=== PATIENT | female | born 1980 | race Caucasian/White ===

== ENCOUNTER 2019-11-04 21:40 | Inpatient (IN) | payer OTHER ==
[2019-11-04] MEDS ORDERED: Morphine 4 MG/ML VIAL ONE ×2 (21:59→23:26)
[2019-11-04] MEDS ORDERED: Ondansetron PF 4 MG/2 ML Vial ONE (21:59)
[2019-11-04 22:07] LABS: #Basophils 0.1 thou/uL (0.0-0.2); #Eosinphils 0.2 thou/uL (0.0-0.7); #Monocytes 1.4 thou/uL (0.11-0.59); #Neutrophils 7.7 thou/uL (1.40-6.50); %Basophils 0.5 % (0.0-1.0); %Eosinophils 1.2 % (0.0-10.0); %Lymphocytes 29.9 % (21.0-51.0); %Monocytes 10.2 % (0.0-10.0); %Neutrophils 58.2 % (42.0-75.0); Hemoglobin 10.1 g/dL (12.0-16.0); Mean Corpuscular HGB CONC 32.6 g/dL (32.0-36.0); Mean Corpuscular Hemoglobin 25.4 pg (27.0-31.0); Mean Corpuscular Volume 77.9 fL (78.0-98.0); Mean Platelet Volume 7.1 fL (7.4-10.4); Platelet Count 468 thou/uL (130-400); RBC Distribution Width 15.5 % (11.5-14.5); Red Blood Cell (RBC) Count 3.99 mill/uL (4.20-5.40); White Blood Cell (WBC) Count 13.3 thou/uL (4.8-10.8)
[2019-11-04 22:23] LABS: ALT (SGPT) 14 U/L (8-55); AST (SGOT) 22 U/L (5-34); Albumin 4.3 g/dL (3.5-5.0); Alkaline Phosphatase 75 U/L (40-110); Anion Gap 13 mmol/L (10-20); BUN (Urea Nitrogen) 14 mg/dL (7.0-18.7); Bilirubin, Total 0.3 mg/dL (0.2-1.2); Calc. Creatinine Clearance 0 mL/min (70-130); Carbon Dioxide 25 mmol/L (22-29); Chloride 103 mmol/L (98-107); Estimated GFR-MDRD 87; Globulin 3.1 g/dL (2.4-3.5); Glucose 121 mg/dL (70-105); Potassium 3.2 mmol/L (3.5-5.1); Protein, Total 7.4 g/dL (6.0-8.3); Sodium 138 mmol/L (136-145)
[2019-11-04 22:34] LABS: BHCG - Serum Negative (NEGATIVE); Pregs Control Background? CLEAR/WHITE (CLR/WHITE); Pregs Control Bar Appear? YES (CONTROL BAR)
--- NOTE | 2019-11-04 22:46 | RAD ---
Radiograph right leg tibia-fibula 2 views: DATE: 11/04/2019 Time: 10:06 PM HISTORY: 38-year-old female status post acute traumatic injury to right leg FINDINGS: Spiral fracture begins at junction between proximal and middle thirds of tibial diaphysis, with one h long-term shaft width posterior displacement of major distal fragment. Minimally displaced spiral fracture lucencies propagate distally through the distal diaphysis, reaching the distal metaphysis. N o high-grade angulation or high-grade transverse displacement between the major fracture fragments. Spiral fracture of distal fibular diaphysis, with approximately 75% or greater posterior displacement of major distal fragment. Nondisplaced linear spiral fracture lucencies extend to the distal fibular metaphysis. No high-grade displacement in transverse dimension. IMPRESSION: 1. Acute, traumatic, displaced, spiral and comminuted fracture of distal tibial shaft. 2. Acute, traumatic, displaced spiral fracture of distal fibular shaft.
--- NOTE | 2019-11-04 23:08 | RAD ---
RADIOGRAPH CHEST 1 VIEW: DATE: 11/04/2019 HISTORY: 38-year-old female status post fall. Preoperative clearance for right leg surgery. FINDINGS: The visualized lung domínguez are clear. The cardiomediastinal silhouette and hilar shadows are normal. The lateral costophrenic angles are sharp. The osseous structures appear normal. There is no pneumothorax. IMPRESSION: Negative.
[2019-11-04] MEDS ORDERED: Morphine 2 MG/ML SYRINGE SLOW IVP PRN (23:46)
[2019-11-04] MEDS ORDERED: Dextrose 5% in Water 1,000 ML IV PRN (23:46)
[2019-11-04] MEDS ORDERED: Morphine 4 MG/ML VIAL SLOW IVP PRN (23:46)
[2019-11-04] MEDS ORDERED: hydrALAZINE 20 MG/ML VIAL SLOW IVP PRN (23:46)
[2019-11-04] MEDS ORDERED: Ondansetron PF 4 MG/2 ML Vial IVP PRN (23:46)
[2019-11-04] MEDS ORDERED: Dextrose 50% Abboject 50 ML SYRINGE SLOW IVP PRN (23:46)
[2019-11-04] MEDS ORDERED: traMADol HCl 50 MG TAB PO PRN ×2 (23:49)
[2019-11-05] MEDS ORDERED: Potassium Phosphate 15 MMOL in Sodium Chloride 0.9% 250 ML 250 ML IVPB SCH (00:30)
[2019-11-05 01:02] VITALS: BMI 18.8
--- NOTE | 2019-11-05 01:05 | CON ---
DATE OF CONSULTATION: REQUESTING PHYSICIAN: Laith Luis DO CONSULTING PHYSICIAN: Kedar Horan MD HISTORY OF PRESENT ILLNESS: Ms. Menjivar is a 38-year-old female, who presented to the ED after an incident falling at home. The patient reports she was misstep on the backyard and fell backwards, did not hit her hand or any other part of her body. However, after a fall, the patient felt excruciating pain of the right lower leg and unable to bear weight. The patient reports no loss of consciousness or bruising of any other part of her body. Upon arrival in the ED, the patient is alert and awake. Vital signs are stable. Complains of pain of the right lower extremity. Neurovascularly intact. The right lower foot is intact. REVIEW OF SYSTEMS: Noncontributory except as per HPI. PAST MEDICAL HISTORY: No past medical history. PAST SURGICAL HISTORY: Endoscopy for endometriosis treatment for infertility treatment. SOCIAL HISTORY: Denies alcohol. Denies drug use. No smoking history. The patient lives at home with family. ALLERGIES: NO KNOWN DRUG ALLERGIES. CURRENT MEDICATIONS: None. PHYSICAL EXAMINATION: GENERAL: The patient lying in bed comfortable with no acute respiratory distress. The patient's skin is pink and moist. The patient is alert and awake. GCS 15. VITAL SIGNS: Heart rate 90, blood pressure 126/82, respiratory rate 18, O2 saturation 97% on room air, temperature 97.3. HEENT: Atraumatic. No bruising. Nontender to palpation. No bleeding. Pupil 3 mm, round, equal bilaterally, reactive to light. No discharge from the nostril bilaterally or ear bilaterally. NECK: Trachea midline. No tender to palpation. CHEST: Atraumatic. No bruising. No crepitus. No tender to palpation. LUNGS: Clear bilaterally. HEART: Regular rate and rhythm. ABDOMEN: Soft nondistended. No bruising. No tender to palpation. Apparently no peritonitis sign. PELVIS: Stable. EXTREMITIES: Right lower extremity, obvious deformity and bruising of the mid lower extremity, deformity of the midshaft of right tib-fib. Right foot is pink and warm. Capillary refill less than 2 seconds. Pulses positive from posterior tibia and dorsal. Bilateral upper extremity range of motion is normal. Neurovascularly intact x2. Left lower extremity, normal range of motion, neurovascularly intact. NEUROLOGIC: No focal neurology deficits. LABORATORY DATA: Initial workup show chest x-ray negative. X-ray of right tib- fib show acute traumatic displaced comminuted fracture of distal tibia shaft, acute traumatic, displaced fracture of distal fibular shaft. Laboratory show HCG serum negative. Sodium 138, potassium 3.2, creatinine 0.74, glucose is 121, AST 22, ALT 14. White count 13.3, hemoglobin 10.1, platelet count is 468. ASSESSMENT: 1. Status post mechanical fall. 2. Right close mid tib-fib fracture, neurovascularly intact. 3. Hypokalemia. 4. Acute on chronic anemia. PLAN: The patient will be admitted to [place] [id number] for pain control. The patient had a splint by ED doctor. Dr. Horan plan to take the patient to the OR for right tib-fib fracture fixation tomorrow. Initiate gastritis prophylaxis. The patient will be working with physical therapy, occupational therapy postop tomorrow. Anticipate discharge home in [address] Fajardo was notified before this dictation Job ID: [id number] [facility]
[2019-11-05] MEDS: Sodium Chloride 0.9% 1,000 ML IV SCH ×3 (01:11→16:53)
[2019-11-05] MEDS: Acetaminophen 500 MG TAB PO SCH ×2 (01:13→05:31)
[2019-11-05] MEDS: Ibuprofen 600 MG TAB PO SCH ×2 (01:14→07:40)
[2019-11-05] MEDS ORDERED: Sodium Chloride 0.9% (PF) 10 ML VIAL FS PRN (07:02)
[2019-11-05] MEDS ORDERED: Pantoprazole 40 MG VIAL IVP SCH (07:15)
[2019-11-05 07:18] LABS: Anion Gap 15 mmol/L (10-20); BUN (Urea Nitrogen) 9 mg/dL (7.0-18.7); Calc. Creatinine Clearance 84 mL/min (70-130); Calcium 8.6 mg/dL (7.8-10.44); Carbon Dioxide 21 mmol/L (22-29); Chloride 107 mmol/L (98-107); Estimated GFR-MDRD Greater than 90; Glucose 105 mg/dL (70-105); Potassium 3.5 mmol/L (3.5-5.1); Sodium 139 mmol/L (136-145)
[2019-11-05] MEDS ORDERED: CEFAZOLIN 2 GM in Premix Bag 1 BAG IVPB SCH ×2 (07:30→18:00)
[2019-11-05] MEDS: Ferrous Sulfate 325 MG TAB PO SCH ×2 (08:18→16:52)
[2019-11-05] MEDS: Ascorbic Acid 500 mg Chewable Tablet PO SCH ×2 (08:19→20:11)
[2019-11-05] MEDS: Polyethylene Glycol 3350 17 GM Packet PO SCH (08:19)
[2019-11-05] MEDS: Senokot S 8.6-50 MG TAB PO SCH ×2 (08:19→20:11)
--- NOTE | 2019-11-05 08:56 | CON ---
DATE OF CONSULTATION: CHIEF COMPLAINT: Right leg pain. HISTORY OF PRESENT ILLNESS: Ms. Menjivar is a 38-year-old female who fell from her porch yesterday evening. She was stepping when she missed a step. She fell and twisted her leg. She had severe pain, was unable to bear weight. X-rays in the emergency department demonstrated a distal tibia and fibular fracture. She has been admitted to the hospital. She declined having a splint placed. She did not want any significant pain medications earlier as she does have nausea usually with pain medications. She denies loss of consciousness. REVIEW OF SYSTEMS: Positive for right leg pain. Otherwise, negative 10-point review of systems. PAST MEDICAL HISTORY: She denies active medical problems. PAST SURGICAL HISTORY: Endometriosis treatment with endoscopy. SOCIAL HISTORY: The patient denies tobacco, alcohol, or drug use. ALLERGIES: NO KNOWN DRUG ALLERGIES. MEDICATIONS: None. DIAGNOSTIC STUDIES: X-rays of the right tibia and fibula demonstrate a comminuted and displaced distal tibia and fibular fracture. This does not involve the joint, but is approximately 2 cm from the joint near the weightbearing dome. PHYSICAL EXAMINATION: VITAL SIGNS: Temperature is 97.8, pulse is 75, respiratory rate is 16, oxygen saturation is 100%, and blood pressure is 131/83. GENERAL: She is alert and oriented, no apparent distress. RESPIRATORY: Breathing comfortably. ABDOMEN: Soft, nontender, nondistended. MUSCULOSKELETAL: The patient's right lower extremity is somewhat swollen. Her compartments are soft. She is able to flex and extend her toes. She has a palpable pulse. She has sensation intact on the dorsal and plantar aspect. IMPRESSION: Right distal tibia and fibular fracture. PLAN: The patient will need to go to the operating room today for intramedullary nail fixation of her distal tibia. We will plan for this to be done approximately noon today. She will be n.p.o. until after midnight. She will have adequate pain control. She will have antibiotic and DVT prophylaxis. All questions have been answered. Job ID: [id number]
[2019-11-05] MEDS ORDERED: Senokot S 8.6-50 MG TAB PO SCH (09:00)
[2019-11-05] MEDS ORDERED: Famotidine 20 MG TAB PO SCH ×2 (09:00)
[2019-11-05] MEDS ORDERED: Dexamethasone 4 mg/ml Vial ONE (10:45)
[2019-11-05] MEDS ORDERED: Midazolam HCl 2 mg/2 ml Vial ONE (10:45)
[2019-11-05] MEDS ORDERED: Fentanyl 100 MCG/2 ML VIAL ONE ×2 (10:45→11:26)
[2019-11-05] MEDS ORDERED: Scopolamine 1.5 mg/72 hour Patch ONE (10:53)
[2019-11-05] MEDS ORDERED: Ondansetron PF 4 MG/2 ML Vial ONE (11:21)
[2019-11-05] MEDS ORDERED: Bupivacaine HCl 0.5%/Epinephrine 1:200,000/PF 30 ml Vial ONE (11:21)
[2019-11-05] MEDS ORDERED: PROPOFOL 200 MG/20 ML VIAL ONE (11:21)
[2019-11-05] MEDS ORDERED: Ketorolac Tromethamine 30 MG/ML VIAL ONE (11:21)
--- NOTE | 2019-11-05 11:24 | PRG ---
DATE OF SERVICE: 11/05/2019 SUBJECTIVE: The patient is currently on the surgical floor. She is status post ground level fall when she sustained a right distal tibia and fibular fracture. She has been n.p.o. since midnight. She is awaiting surgery, which is planned for early this afternoon. Currently, her pain is controlled. PHYSICAL EXAMINATION: VITAL SIGNS: Temperature is 97.8, heart rate 75, blood pressure 131/83, respirations 16, oxygen saturation 100% on room air. GENERAL: The patient is resting comfortably in bed. She is awake, alert, and oriented x3. [place] Coma Scale is 15. HEENT: Unremarkable. LUNGS: Clear to auscultation bilaterally. HEART: Regular rate and rhythm. ABDOMEN: Soft, nontender with active bowel sounds. EXTREMITIES: Neurovascularly intact x4. LABORATORY FINDINGS: This morning, sodium 139, potassium 3.5, chloride 107, CO2 of 21, BUN 9, creatinine 0.71, glucose 105. There are no new radiographs to review. ASSESSMENT: 1. Status post fall from stairs. 2. Right tibia and fibula shaft fracture. 3. Acute pain secondary to above. PLAN: Plan will be to continue n.p.o. status, pain control, pulmonary toilet, and postoperatively will begin physical and occupational therapy. The patient will likely be able to be discharged home tomorrow after working with therapy. Evaluation and examination were done with Dr. Carbajal during rounds this morning. Job ID: [id number]
[2019-11-05] MEDS ORDERED: Zolpidem Tartrate 5 MG TAB PO PRN (11:50)
[2019-11-05] MEDS ORDERED: traMADol HCl 50 MG TAB PO PRN ×2 (11:50)
[2019-11-05] MEDS ORDERED: Ropivacaine 0.2% 550 ML 550 ML NERVE BLCK SCH (11:50)
[2019-11-05] MEDS ORDERED: Ondansetron PF 4 MG/2 ML Vial IVP PRN (11:50)
[2019-11-05] MEDS ORDERED: Acetaminophen 325 MG TAB PO PRN (11:50)
[2019-11-05] MEDS ORDERED: Promethazine HCl 25 MG/ML VIAL IM PRN (11:50)
[2019-11-05] MEDS ORDERED: Ketorolac Tromethamine 30 MG/ML VIAL IVP PRN (11:50)
[2019-11-05] MEDS ORDERED: HYDROcodone/Acetaminophen 10/325 mg Tablet PO PRN ×2 (11:50)
[2019-11-05] MEDS ORDERED: Fentanyl 100 MCG/2 ML VIAL IV PRN (11:51)
--- NOTE | 2019-11-05 13:31 | RAD ---
RIGHT TIBIA AND FIBULA 2 VIEWS: Date: 11/05/2019 HISTORY: Open reduction and internal fixation. COMPARISON: Radiograph from prior day. FINDINGS: Multiple images were obtained from the operating room. Improved alignment post fixation. IMPRESSION: Satisfactory postoperative appearance. POS: C
[2019-11-05] MEDS ORDERED: Promethazine HCl 25 MG/ML VIAL ONE (13:54)
[2019-11-05] MEDS ORDERED: Ondansetron HCl/PF 4 MG/2 ML Vial IVP PRN (14:08)
[2019-11-05] MEDS ORDERED: Promethazine HCl 25 MG/ML VIAL IM/IV PRN (14:08)
--- NOTE | 2019-11-05 14:08 | OP ---
DATE OF PROCEDURE: 11/05/2019 PROCEDURES PERFORMED: 1. Open reduction and internal fixation of right distal fibula fracture. 2. Intramedullary nail fixation of right tibia fracture. PREOPERATIVE DIAGNOSIS: Right tibia fracture and fibular fracture. POSTOPERATIVE DIAGNOSIS: Right tibia fracture and fibular fracture. COMPLICATIONS: None. ESTIMATED BLOOD LOSS: 100 mL. ANESTHESIA: General plus regional. IMPLANT: Synthes 300 mm nail x 9 mm nail. One-third tubular plate, 7-hole. INDICATIONS: Ms. Menjivar is a 38-year-old female, who fell from her porch. She fractured her right tibia and fibula. She was indicated for open reduction and internal fixation of the fibula and nailing of the tibia. Risks have been reviewed in detail. She has elected to proceed with the operation. The patient accepted risks and decided to proceed with surgery. DESCRIPTION OF PROCEDURE: Ms. Menjivar was identified in the preoperative holding area. Her correct extremity was marked. She was carried to the operating room. She was positioned supine. General anesthesia was induced. A multidisciplinary time-out was performed. The right lower extremity was prepped and draped in sterile fashion. We began the procedure by making an incision over the distal fibula. We dissected down through the subcutaneous tissues to the fascia, which was opened. We exposed the underlying displaced fibular fracture. At this point, we reduced the fracture of the fibula with reduction forceps. We held the bone in anatomically-reduced position. We then placed a one-third tubular plate along the lateral cortex. Six screws were placed in the plate. These were placed proximally and distally, holding the reduction well. We took x-ray images confirming this. We moved to the tibia. We made a small incision over the knee. We dissected down through the subcutaneous tissues to the fascia of the patella. We made a small incision over the medial parapatellar tissues. This allowed us to insert our guidewire in the tibial plateau anterior cortex. We guided this on intraoperative x-ray. Next, we passed our ball-tipped guidewire across the fracture site, seating this distally in the tibia. We reduced the fracture appropriately. Next, we proceeded to over-ream the guidewire up to a size 10 reamer. We then placed our 9-mm tibial nail. This was seated appropriately on x-ray. We placed two proximal CrossLock screws followed by 3 distal CrossLock screws using perfect [place] technique. At this point, we took final x-ray images. We thoroughly irrigated with copious lavage. We then closed in layers all wounds. We placed a well-padded splint. The patient was taken to the recovery room at this point without complication. Job ID: [id number]
[2019-11-05] MEDS ORDERED: Cyclobenzaprine 10 MG TAB PO PRN (15:26)
[2019-11-05] MEDS: CEFAZOLIN 2 GM in Premix Bag 1 BAG IVPB SCH (20:11)
[2019-11-05] MEDS ORDERED: Ibuprofen 600 MG TAB PO PRN (21:11)
--- NOTE | 2019-11-05 22:39 | PRG ---
DATE OF SERVICE: 11/05/2019 SUBJECTIVE: Amanda is a 38-year-old female status post mechanical fall with right mid tib-fib fracture. She underwent ORIF of right tib-fib fracture with Dr. Horan today. Postop, the patient doing good. Pain is well controlled with p.o. medications and nerve block. She tolerated with her diet. She developed no fever or shortness of breath. She has not yet working with Physical Therapy and Occupational Therapy. OBJECTIVE: GENERAL: Currently, the patient lying in bed comfortable with no acute respiratory distress. VITAL SIGNS: Stable. LUNGS: Clear bilaterally. HEART: Regular rate and rhythm. ABDOMEN: Soft and nondistended. EXTREMITIES: Postop dressing clean, dry, and intact. Right toe is pink and warm. ASSESSMENT: 1. Status post mechanical fall. 2. Right closed mid tib-fib fracture, status post open reduction and internal fixation of right tib-fib fracture. PLAN: Plan will be continue supportive care and continue pain control. The patient will be needed to work with Physical Therapy and Occupational Therapy tomorrow. Anticipate discharge home for the next 24 to 48 hours. Job ID: [id number]
[2019-11-05] MEDS: Acetaminophen 325 MG TAB PO SCH (23:37)
[2019-11-05] MEDS ORDERED: diphenhydrAMINE 25 MG CAP PO PRN (23:47)
[2019-11-06] MEDS: Sodium Chloride 0.9% 1,000 ML IV SCH ×2 (03:37→08:30)
[2019-11-06] MEDS: CEFAZOLIN 2 GM in Premix Bag 1 BAG IVPB SCH (03:37)
[2019-11-06 04:54] LABS: #Lymphocytes 1.9 thou/uL (1.20-3.40); #Monocytes 1.6 thou/uL (0.11-0.59); %Basophils 0.1 % (0.0-1.0); %Lymphocytes 13.2 % (21.0-51.0); %Neutrophils 75.7 % (42.0-75.0); Hemoglobin 7.6 g/dL (12.0-16.0); Mean Corpuscular HGB CONC 32.2 g/dL (32.0-36.0); Mean Corpuscular Hemoglobin 25.5 pg (27.0-31.0); Mean Corpuscular Volume 79.1 fL (78.0-98.0); Mean Platelet Volume 7.2 fL (7.4-10.4); Platelet Count 347 thou/uL (130-400); RBC Distribution Width 15.5 % (11.5-14.5); White Blood Cell (WBC) Count 14.5 thou/uL (4.8-10.8)
[2019-11-06] MEDS: Acetaminophen 325 MG TAB PO SCH ×3 (05:07→18:08)
[2019-11-06 05:17] LABS: Anion Gap 11 mmol/L (10-20); BUN (Urea Nitrogen) 7 mg/dL (7.0-18.7); Calc. Creatinine Clearance 78 mL/min (70-130); Calcium 8.3 mg/dL (7.8-10.44); Carbon Dioxide 23 mmol/L (22-29); Chloride 107 mmol/L (98-107); Estimated GFR-MDRD 85; Glucose 106 mg/dL (70-105); Magnesium 1.8 mg/dL (1.6-2.6); Phosphorus 3.2 mg/dL (2.3-4.7); Potassium 3.8 mmol/L (3.5-5.1); Sodium 137 mmol/L (136-145)
[2019-11-06] MEDS: Polyethylene Glycol 3350 17 GM Packet PO SCH (08:28)
[2019-11-06] MEDS: Senokot S 8.6-50 MG TAB PO SCH (08:29)
[2019-11-06] MEDS: Ascorbic Acid 500 mg Chewable Tablet PO SCH (08:29)
[2019-11-06] MEDS: Ferrous Sulfate 325 MG TAB PO SCH ×2 (08:29→18:08)
[2019-11-06] MEDS ORDERED: Enoxaparin Sodium 40 MG/0.4 ML SYRINGE SC SCH ×2 (09:00→21:00)
[2019-11-06] MEDS ORDERED: Pantoprazole 40 MG VIAL IVP SCH (09:00)
--- NOTE | 2019-11-06 14:07 | DIS ---
DATE OF ADMISSION: 11/04/2019 DATE OF DISCHARGE: 11/06/2019 ADMISSION DIAGNOSES: 1. Status post fall downstairs. 2. Right tibia fracture. 3. Right distal fibular fracture. 4. Hypokalemia. 5. Acute on chronic anemia. CONSULTATIONS: Orthopedics, Dr. Horan. PROCEDURES: 1. Open reduction and internal fixation of right distal fibular fracture. 2. Intramedullary nail fixation of right tibia fracture. SUMMARY: The patient is a 38-year-old woman who was brought to the emergency department after having a fall downstairs. She underwent evaluation and examination and was noted to have the above injuries. The following morning, she was able to undergo her above procedures, which she tolerated well. At the time of discharge, she had worked with physical and occupational therapy on ambulating, nonweightbearing on her right lower extremity. Her pain was controlled. She was tolerating a diet. She was given instructions on her On-Q pump. She will follow up with Dr. Horan in 10 to 14 days or sooner as needed. She may call the Trauma [facility] as needed. The patient was advised to continue her vitamin C, iron, or a with iron, vitamin to help with her chronic anemia. She is also directed to follow up with her primary care provider in 2 weeks to evaluate recovery of her anemia. Job ID: [id number]
--- NOTE | 2019-11-06 14:14 | PQF ---
DATE: 11-06-19 ATTN: SABINE RAIAS PA-C Please exercise your independent, professional judgment in responding to the clarification form. Clinical indicators are provided on the bottom of this form for your review Please check appropriate box(s): [ ] Acute blood loss anemia [ ] Post-op anemia related to acute blood loss [ ] Anemia: [ ] Aplastic [ ] Nutritional [ ] Drug induced (specify) ___ [ ] Hemolytic [ ] Acquired [ x ] Chronic Anemia: [ ] Blood loss [ ] Hemolytic [ x ] Other __unable to determine [ ] Anemia of Chronic Disease (please specify) [ ] Other diagnosis [ ] Unable to determine In addition, please specify: Present on Admission (POA): [ ] Yes [ ] No [ ] Unable to determine For continuity of documentation, please document condition throughout progress notes and discharge summary. Thank You. CLINICAL INDICATORS - SIGNS / SYMPTOMS / LABS / RESULTS AND LOCATION IN EMR: H&P: 11-04-19: S/P MECHANICAL FALL, RIGHT CLOSE FL TIB-FIB FRACTURE, HYPOKALEMIA, ACUTE ON CHRONIC ANEMIA. OPERATIVE REPORT 11-05-19: R ORIF DISTAL FIBULA FX, INTRAMEDULLARY NAIL FIXATION OF R TIBIA FX, ESTIMATED 100 ML HEMOGLOBIN: 11-04-19: 10.1 11-06-19: 7.6 HEMATOCRIT: 11-04-19: 31.1 11-06-19: 23.7 RISK FACTORS / RESULTS AND LOCATION IN EMR: H&P: 11-04-19: S/P MECHANICAL FALL, RIGHT CLOSE FL TIB-FIB FRACTURE, HYPOKALEMIA, ACUTE ON CHRONIC ANEMIA. OPERATIVE REPORT 11-05-19: R ORIF DISTAL FIBULA FX, INTRAMEDULLARY NAIL FIXATION OF R TIBIA FX, ESTIMATED 100 ML TREATMENTS / RESULTS AND LOCATION IN EMR: MONITORING LABS 11-04-19 AND 11-06-19 (This form is maintained as a part of the permanent medical record) 2014 [employer]. All Rights Reserved [email or web address]
[2019-11-06] MEDS ORDERED: Ketorolac Tromethamine 30 MG/ML VIAL IVP SCH (15:00)
--- NOTE | 2019-11-06 15:18 | PQF ---
DATE: 11-06-19 ATTN: DR. JESSICA PORRAS Please exercise your independent, professional judgment in responding to the clarification form. Clinical indicators are provided on the bottom of this form for your review Please check appropriate box(s): [ ] Encephalopathy: Type: [ ] Acute [ ] Subacute [ ] Chronic Etiology: [ ] Metabolic [ ] Toxic [ ] Other (please specify) [ ] Transient Alteration of Awareness [ ] Other diagnosis [ x ] Unable to determine In addition, please specify: Present on Admission (POA): [ ] Yes [ ] No [ ] Unable to determine For continuity of documentation, please document condition throughout progress notes and discharge summary. Thank You. CLINICAL INDICATORS - SIGNS / SYMPTOMS / LABS / RESULTS AND LOCATION IN EMR: ER NOTES 11-04-19: VOMITING CONFUSION, CHANGES IN MENTATION, NOTED TO HAVE INCREASING CONFUSION AND DIFFICULTY SPEAKING ER DX 11-04-19: BOWEL OBSTRUCTION, ALTERED MENTAL STATUS H&P 11-04-19: PATIENT ORIENTED TO NAME ONLY, DECREASED MENTAL STATUS CONSULT NOTE LAUREN NAVAS APRN 11-05-19: IT IS UNCLEAR WHY HE HAS ALTERED MENTAL STATUS, HOPEFULLY IT IS METABOLIC AND ONCE HIS ABD DISTENTION IMPROVES SO HIS MENTATION, RISK FACTORS / RESULTS AND LOCATION IN EMR: CONSULT NOTE LAUREN NAVAS APRN 11-05-19: HX RECTAL SQUAMOUS CELL CARCINOMA, IT IS UNCLEAR WHY HE HAS ALTERED MENTAL STATUS, HOPEFULLY IT IS METABOLIC AND ONCE HIS ABD DISTENTION IMPROVES SO HIS MENTATION, TREATMENTS / RESULTS AND LOCATION IN EMR: CONSULT NOTE LAUREN NAVAS APRN 11-05-19: IVF CONTINUE MAR: 11-04-19: NS IVF, ROCEPHIN IV (This form is maintained as a part of the permanent medical record) 2014 [facility].. All Rights Reserved [email or web address] [email or web address]
[2019-11-06 15:44] VITALS: BP 108/62; TEMP 98.6
== END 2019-11-06 18:30 | disposition home or self-care (01) | DRG 494 ==
LOC: ERS 21:40 → SURG A 23:49
PROVIDERS: ADMIT Surgery; ATTEND Surgery
PROC: 0QSJ04Z Reposition Right Fibula with Internal Fixation Device, Open Approach (ICD-10-PCS; principal; 2019-11-05)
PROC: 0QSG06Z Reposition Right Tibia with Intramedullary Internal Fixation Device, Open Approach (ICD-10-PCS; 2019-11-05)
DX: S82.441A Displaced spiral fracture of shaft of right fibula, initial encounter for closed fracture (principal); S82.391A Other fracture of lower end of right tibia, initial encounter for closed fracture; I10 Essential (primary) hypertension; E87.6 Hypokalemia; W10.9XXA Fall (on) (from) unspecified stairs and steps, initial encounter; D64.9 Anemia, unspecified; Y92.017 Garden or yard in single-family (private) house as the place of occurrence of the external cause
CPT/HCPCS: 36415; 36416; 71045; 76000; 80048; 80053; 83735; 84100; 84703; 85025; A4306; C1713; C1769; C9113; J0670; J0690; J1100; J1650; J1885; J2250; J2270; J2405; J2550; J2704; J2795; J3010; J7050; Q0163

== ENCOUNTER → 2019-11-07 | Day surgery (SDC) | payer OTHER ==
[~2019-11-07] MED LIST: ROPIVACAINE HCL NERVE BLCK SCH; SODIUM CHLORIDE 0.9% NERVE BLCK SCH
== END ==
LOC: SDC/OP 20:50
PROVIDERS: ATTEND Anesthesiology
DX: M79.604 Pain in right leg (principal)
CPT/HCPCS: J2795; J7050